=== PATIENT | female | born 1990 | race African-American/Black ===

== ENCOUNTER 2017-07-18 12:05 | Emergency (ER) | payer OTHER ==
[~2017-07-18] VITALS: Ht 160 cm; Wt 48.1 kg
[2017-07-18 12:09] VITALS: TEMP 36.7; Ht 160 cm; Wt 48.1 kg
--- NOTE | 2017-07-18 13:23 | EMERGENCY ROOM VISIT NOTE ---
ED Visit Note First contact with patient: 12:46 Chief complaint: Needle stick at work 2 hours ago HPI: Patient is a 27-year-old female who presents emergency department accompanied by her sister for evaluation of a needlestick injury that occurred at work about 2 hours ago. 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 She was reaching into a trash can, when she was stuck in the right thumb by a small hypodermic needle, which she does bring in with her. She states that she squeezed her thumb to make it bleed, they cleansed it with soap and water and applied antibiotic ointment and a Band-Aid. She immediately told her advertising dispatch clerks supervisor. Patient reports that she has never had any type of needlestick injury nor any type of testing for blood work pathogens previously. She does believe that she had the hepatitis B vaccination previously. Her tetanus is current. She denies any other complaints. Review of Systems: Review of systems as per HPI. All other systems reviewed were negative. At least 6 systems reviewed. Past Medical History: Patient is otherwise healthy without any chronic medical problems or surgeries. Social History: Lives locally, denies any tobacco or alcohol use. Immigrated from [place] about 3 years ago. Physical Examination: Vital signs reviewed as per nursing notes. GENERAL: Patient is a pleasant, well-appearing 27-year-old female who is awake and alert and in no acute distress. SKIN: There is a small puncture wound on the tip of the right thumb. Otherwise , the skin is intact. There is no active bleeding. There is no wound care necessary. ED Course Patient was seen and examined as above. She has no old records available for review. Treatment for potential blood borne occupational exposure was outlined with the patient. Information regarding risk of transmission of HIV and hepatitis from a "found needle" from [employer] was related to the patient, as well as their recommendations that no PEP be initiated in this circumstance. She expressed understanding, and was in agreement. Informed consent for HIV and post exposure testing was obtained, and consents and all other paperwork were completed. The patient had no questions, and was comfortable with the treatment plan, and was instructed to follow up with her Worker's Compensation provider for review of her laboratory results. Medication reconciliation: I attest that I have personally reviewed the patient' s current medication list. Blood pressure screening : Patient was found to have normal blood pressure on screening and does not require follow-up. Current/Historical Medications No Active Prescriptions or Reported Meds Allergies Coded Allergies: Dairy (Unverified Allergy, Unknown, ., 07/18/17) Vital Signs Date Time Temp Pulse Resp B/P (MAP) Pulse Ox O2 Delivery O2 Flow Rate FiO2 07/18/17 13:37 77 16 125/84 100 07/18/17 12:09 36.7 78 16 129/87 100 Room Air Laboratory Results Test 07/18/17 13:31 Hepatitis B Surface Antigen NEG (NEG) Hepatitis B Surface Antibody NEG Hepatitis C Antibody NEG (NEG) HIV (1&2) Ab and P24 Ag, 4th Gener NEG (NEG) Departure Information Impression Primary Impression: Sharps injury Additional Impressions: Work related injury Exposure to blood or body fluid Prescriptions No Active Prescriptions or Reported Meds Referrals Miranda Mcmillan D.O. (PCP) Patient Instructions [facility] Additional Instructions Follow-up with your Worker's Compensation/occupational health provider for review of your laboratory studies and for further testing as indicated. Return to the ED if needed. Problem Qualifiers
[2017-07-18 13:37] VITALS: BP 125/84; PULSE 77; O2SAT 100
[2017-07-18 15:09] LABS: HEP C IGG 13 YRS+OLDER_RFLX NEG (NEG)
== END 2017-07-18 13:37 | disposition home or self-care (01) ==
LOC: C.EDB 12:06 → C.EDD 13:37
DX: S61.031A Puncture wound without foreign body of right thumb without damage to nail, initial encounter (principal); W46.1XXA Contact with contaminated hypodermic needle, initial encounter; Y99.0 Civilian activity done for income or pay; Y92.59 Other trade areas as the place of occurrence of the external cause; Z91.011 Allergy to milk products

== ENCOUNTER 2019-03-30 12:12 | Inpatient (IN) ==
--- OUTSIDE RECORDS SUMMARY | 2019-03-30 12:24 | External Medical Summary | Continuity of Care Document ---
:1990 Author Name Dawna Escobar, Provider Address Unavailable Unavailable , Care Team Providers Name Role Phone Miranda Cline Unavailable [email or web address], [email or web address] Unavailable Unavailable Problems Active medical history not documented Allergies and Adverse Reactions Allergy history not documented Medications Medications not documented Procedures Procedures not documented Immunizations Immunizations not documented Plan of Treatment Planned Observations Planned Goals not documented Results No Known Results Results not documented Encounters Appointment; Miranda Perkins CRNP 22-Jul-2017 14:00 Encounter Diagnosis: Problem not documented
[2019-03-30] MEDS ORDERED: OXYTOCIN 30 UNITS/500 ML BAG IV PRN (13:26)
[2019-03-30] MEDS ORDERED: DINOPROSTONE 10 MG INSERT PV ONE (13:45)
[2019-03-30] MEDS ORDERED: PENICILLIN G POTASSIUM 6 MU in DEXTROSE 5% 250 ML IV STA (13:45)
[2019-03-30 14:07] LABS: Hematocrit (blood only) 35.5 % (37-47); Hemoglobin 12.4 g/dL (12.0-16.0); Mean Corpuscular Hemoglobin 32.5 pg (25-34); Mean Corpuscular Volume 92.9 fL (80-100); Mean Platelet Volume 10.7 fL (7.4-10.4); Platelet Count 236 K/uL (130-400); RDW Coefficient of Variation 11.9 % (11.5-14.5); RDW Standard Deviation 40.4 fL (36.4-46.3); Red Blood Count 3.82 M/uL (4.2-5.4); White Blood Count 4.35 K/uL (4.8-10.8)
[2019-03-30 14:11] LABS: Mean Corpuscular Hgb Conc 34.9 g/dL (32-36)
--- NOTE | 2019-03-30 14:12 | Obstetrical Progress Note ---
Date of Service March 30, 2019 Subjective Admit note 28 F P0000 at 39 weeks admitted for IOL for IUGR. cervix is is closed/50/- 3/vertex/posterior/intact/firm. GBS is positive. FHT Cat 1. Cervidil 10 mg vaginally placed for cervical ripening. Antibiotics to be started when in labor. EFW 6 lbs. Results & Data Vital Signs (Past 12 Hours) Vital Signs Pulse BP 03/30/19 12:27 95 H 120/78
[2019-03-30] MEDS ORDERED: BUTORPHANOL TARTRATE 1 MG/ML VIAL IV PRN (19:54)
[2019-03-30] MEDS ORDERED: ONDANSETRON INJ 2 MG/ML 2 ML VIAL IV PRN ×2 (19:54→22:56)
[2019-03-30] MEDS: LACTATED RINGER'S 1,000 ML IV PRN (19:55)
[2019-03-30] MEDS ORDERED: BUTORPHANOL TARTRATE 1 MG/ML VIAL ONE (19:58)
[2019-03-30] MEDS ORDERED: ONDANSETRON INJ 2 MG/ML 2 ML VIAL ONE (19:59)
--- NOTE | 2019-03-30 21:58 | Obstetrical Progress Note ---
Date of Service March 30, 2019 Physical Exam Genitourinary: OB Exam Abdomen: + heart tones Manual OB Exam: + cervical dilation 3 cm and 4 cm, + cervical effacement 70%, + station -2 and + amniotic fluid clear OB Exam Monitor Tracing: + external FHT monitor used, + external uterine monitor used, + category I and + normal FHT variability AROM with Amni-hook clear fluid for epidural Results & Data Vital Signs (Past 12 Hours) Vital Signs Temp Pulse Resp BP Pulse Ox 03/30/19 21:53 82 99 03/30/19 21:48 78 100 03/30/19 21:43 72 100 03/30/19 21:38 80 98 03/30/19 21:33 76 100 03/30/19 21:28 71 100 03/30/19 21:24 84 91 03/30/19 21:23 78 100 03/30/19 21:18 72 100 03/30/19 21:13 81 100 03/30/19 21:08 76 100 03/30/19 21:05 80 89 L 03/30/19 21:03 77 100 03/30/19 20:58 80 100 03/30/19 20:53 79 100 03/30/19 20:48 88 80 L 03/30/19 20:47 95 H 90 03/30/19 20:42 84 100 03/30/19 20:37 85 100 03/30/19 20:32 97 H 100 03/30/19 20:27 91 H 100 03/30/19 20:24 100 H 92 03/30/19 20:22 97 H 100 03/30/19 20:17 91 H 100 03/30/19 20:12 92 H 100 03/30/19 20:07 95 H 100 03/30/19 20:02 89 100 03/30/19 19:57 94 H 93 03/30/19 19:55 93 H 91 03/30/19 19:52 96 H 100 03/30/19 19:49 103 H 86 L 03/30/19 19:47 109 H 100 03/30/19 19:42 97 H 92 03/30/19 19:37 98 H 100 03/30/19 19:15 36.8 C 16 03/30/19 19:08 86 111/66 03/30/19 16:03 36.6 C 16 03/30/19 16:02 86 116/79 03/30/19 12:27 95 H 120/78
[2019-03-30] MEDS ORDERED: fentaNYL citrate 100 MCG/2 ML VIAL ONE (21:59)
[2019-03-30] MEDS ORDERED: ePHEDrine sulfate 50 MG/ML AMP ONE (21:59)
[2019-03-30] MEDS ORDERED: BUPIVACAINE 0.25% 30 ML VIAL ONE (21:59)
[2019-03-30] MEDS ORDERED: fentaNYL 2MCG/ML ROPIV 1.25MG/ML 100 ML BAG EPI ONE (22:00)
--- NOTE | 2019-03-30 22:31 | Anesthesiology Consultation ---
Date of Service March 30, 2019 Assessment & Plan Chart Review Chart Review: Acceptable Risk for Surgery, Patient NOT seen in Pre Admission Testing and Acceptable Risk for Labor Epidural Consults Requested none ASA ASA2 Proposed Anesthesia Anesthesia Type: Labor Epidural Risk / Benefits Reviewed With: PT / POA / Parent / Guardian, Accepts Plan and I nformed Consent Obtained History Height/Weight Height: 5 ft 1 in Weight: 59.421 kg Allergies Allergy/AdvReac Type Severity Reaction Status Date / Time milk Allergy Unknown . Verified 03/30/19 12:29 Medications Home Medications Medication Instructions Recorded Confirmed Last Taken PNV cmb#95-ferrous fumarate-FA 1 tab PO DAILY 03/30/19 03/30/19 03/29/19 [] cholecalciferol (vitamin D3) 2,000 unit PO DAILY 03/30/19 03/30/19 Unknown [Vitamin D3] Active Medications Generic Name Dose Route Start Last Admin Trade Name Freq PRN Reason Stop Dose Admin Lactated Ringer's 1,000 mls @ 125 mls/hr 03/30/19 13:26 03/30/19 21:27 Lr IV 04/01/19 13:25 125 mls/hr .Q8H PRN Infusion L&D Protocol Protocol NPO Date Last Intake of Fluids: 03/30/19 Time Last Intake of Fluids: 21:00 Date Last Intake of Solids: 03/30/19 Time Last Intake of Solids: 15:00 Exercise / Class Metabolic Activity II 4-5 Yardwork/Stairs/Walk up hill Past Surgical History Surgical History History of dental surgery Past Anesthesia History No Hx of Anesthesia Complications and No Family Hx of Anesthesia Complications History of PONV No Hx of PONV and No Hx of Motion Sickness Social History Smoking Status: Never smoker Hx Alcohol Use: No Hx Substance Use: No Physical Exam Vital Signs Last Vital Signs Temp 36.8 C 03/30/19 19:15 Pulse 75 03/30/19 22:28 Resp 16 03/30/19 19:15 BP 140/64 03/30/19 22:28 Pulse Ox 90 03/30/19 22:25 Constitutional not obese ENMT Mouth: + small oral opening; no dentition abnormality Thyromental Distance: < 3.5 Finger Breadths Mallampati Class: II Neck normal visual inspection and trachea midline; neck extension not limited Respiratory normal respiratory effort Auscultation: lungs clear to auscultation bilaterally Cardiovascular Rate/Rhythm: regular rate and regular rhythm Heart Sounds: no murmur Musculoskeletal Spine: lumbar spine normal to inspection; normal cervical ROM Neurologic moves all extremities Motor/Sensory: no sensory deficit Psychiatric Orientation: alert and oriented x 3 Testing Laboratory Results 03/30/19 13:52
[2019-03-30] MEDS ORDERED: NALOXONE HCL 1 MG in SODIUM CHLORIDE 0.9% 1000ML 1,000 ML IV PRN (22:56)
[2019-03-30] MEDS ORDERED: fentaNYL 2MCG/ML ROPIV 1.25MG/ML 100 ML BAG EPI PRN (22:56)
[2019-03-30] MEDS ORDERED: NALBUPHINE HCL INJ 10 MG/ML AMP IV PRN (22:56)
[2019-03-30] MEDS ORDERED: PROMETHAZINE HCL 25 MG in SODIUM CHLORIDE 0.9% 50 ML IV PRN (22:56)
[2019-03-30] MEDS ORDERED: NALOXONE HCL 0.4 MG/1 ML VIAL/CARP IV PRN (22:56)
[2019-03-30] MEDS ORDERED: DiphenhydrAMINE HCL 50 MG/ML VIAL IV PRN (22:56)
[2019-03-30] MEDS ORDERED: ePHEDrine sulfate 50 MG/ML AMP IV PRN (22:56)
[2019-03-31] MEDS: PENICILLIN G POTASSIUM 3 MU in DEXTROSE 5% 100 ML IV PRN ×3 (00:53→08:17)
[2019-03-31] MEDS: LACTATED RINGER'S 1,000 ML IV PRN (02:05)
[2019-03-31] MEDS ORDERED: SUPERCREAM 0.870% 15 GM JAR EXT PRN (11:57)
[2019-03-31] MEDS ORDERED: HYDROCORTISONE ACETATE 25 MG SUPP PR PRN (11:57)
[2019-03-31] MEDS ORDERED: BENZOCAINE 20% AER SPR 82.5 GM CAN EXT PRN (11:57)
[2019-03-31] MEDS ORDERED: bisacodyL 10 MG SUPP PR PRN (11:57)
[2019-03-31] MEDS ORDERED: ACETAMINOPHEN W/CODEINE #3 1 TAB PO PRN (11:57)
[2019-03-31] MEDS ORDERED: OXYCODONE/ACETAMINOPHEN 5mg/325mg TAB PO PRN (11:57)
[2019-03-31] MEDS ORDERED: ACETAMINOPHEN 325 MG TAB PO PRN (11:57)
[2019-03-31] MEDS ORDERED: OXYTOCIN 30 UNITS/500 ML BAG IV PRN (11:57)
[2019-03-31] MEDS ORDERED: DIPHTHERIA/TETANUS/PERTUSSIS 0.5 ML SYR/VIAL IM ONE (11:57)
--- NOTE | 2019-03-31 12:59 | Operative Report ---
DATE OF OPERATION: 03/31/2019 1, para 1. Blood type is O positive, vaginal group B strep positive. Due date 04/06/2019, was brought in for induction of labor at [facility], had an epidural for pain control, was started on IV Pitocin augmentation and she went to full dilatation, delivered a live via direct occiput anterior position over an intact perineum. Infant was suctioned through the mouth and the nose. Shoulders were delivered without difficulty. Cord was clamped, cut by the patient's mother. Then cord blood was taken. With IV Pitocin running, the placenta was removed intact. Inspection of the perineum revealed a first degree laceration in the midline along with a laceration of the labia minora superficial on the left side. The midline was approximated with 2-0 Vicryl, which approximated the vaginal mucosa out to beyond the hymenal ring. A separate suture was used to approximate the bulbocavernosus muscle, deep sutures used to approximate the perineal body and a running subcuticular suture was used to approximate the perineal skin edges. Then, the laceration on the left labia minora was approximated with a running 3-0 chromic. Following this, vaginal examination revealed no hematoma formation or sponges in the vagina. Estimated blood loss was 200 mL. Apgars were deferred to the nurses. I attest to the content of the Intraoperative Record and any orders documented therein. Any exception s are noted below.
--- NOTE | 2019-03-31 13:42 | Anesthesia Procedure Note ---
Date of Service March 31, 2019 Anesthesia Post Epidural Note Vital Signs Vital Signs: Temp Pulse Resp BP Pulse Ox 36.9 C 88 20 122/73 99 03/31/19 08:51 03/31/19 13:35 03/31/19 12:45 03/31/19 13:35 03/31/19 11:29 Pain Intensity Bilateral Abdomen: Pain Intensity: 0 Notes Mental Status: alert / awake / arousable and participated in evaluation Nausea / Vomiting: adequately controlled Pain: adequately controlled Airway Patency, RR, SpO2: stable & adequate BP & HR: stable & adequate Hydration State: stable & adequate Neuraxial Anesthesia: was administered and sensory block is resolving Anesthetic Complications: no major complications apparent and Pt Satisfied with anesthetic care Epidural: Removed without complications and With tip intact
[2019-03-31] MEDS: IBUPROFEN 600 MG TAB PO PRN ×2 (13:43→23:26)
[2019-03-31] MEDS: DOCUSATE SODIUM 100 MG CAP PO SCH (20:38)
[2019-04-01 06:14] LABS: Hematocrit (blood only) 30.5 % (37-47); Hemoglobin 10.6 g/dL (12.0-16.0); Mean Corpuscular Hemoglobin 32.7 pg (25-34); Mean Corpuscular Hgb Conc 34.8 g/dL (32-36); Mean Corpuscular Volume 94.1 fL (80-100); Mean Platelet Volume 10.7 fL (7.4-10.4); Platelet Count 198 K/uL (130-400); RDW Standard Deviation 40.7 fL (36.4-46.3); Red Blood Count 3.24 M/uL (4.2-5.4); White Blood Count 11.66 K/uL (4.8-10.8)
--- NOTE | 2019-04-01 08:31 | Obstetrical Progress Note ---
Date of Service April 01, 2019 Subjective doing well liz diet ambulating and passing gas Physical Exam Constitutional: WD/WN, vitals as above comfortable abdomen is soft and non-tender neg edema neg [place]'s tent d/c tomorrow Results & Data Vital Signs (Past 12 Hours) Vital Signs Temp Pulse Resp BP 04/01/19 04:50 36.7 C 75 18 99/64 L 04/01/19 00:30 37 C 65 18 105/68 Laboratory Results Laboratory Results - last 72 hr 03/30/19 04/01/19 13:52 05:41 WBC 4.35 L 11.66 H RBC 3.82 L 3.24 L Hgb 12.4 10.6 L Hct 35.5 L 30.5 L MCV 92.9 94.1 MCH 32.5 32.7 MCHC 34.9 34.8 RDW Std Deviation 40.4 40.7 RDW Coeff of Etelvina 11.9 12.0 Plt Count 236 198 MPV 10.7 H 10.7 H
[2019-04-01] MEDS: DOCUSATE SODIUM 100 MG CAP PO SCH ×2 (09:09→21:00)
[2019-04-01] MEDS: PRENATAL VITAMIN 1 TAB PO SCH (09:09)
[2019-04-01] MEDS: IBUPROFEN 600 MG TAB PO PRN ×3 (09:09→23:52)
[2019-04-01] MEDS ORDERED: bisacodyL 5 MG TABEC PO SCH (20:00)
[2019-04-02 07:13] LABS: Hematocrit (blood only) 31.1 % (37-47); Hemoglobin 10.9 g/dL (12.0-16.0)
--- NOTE | 2019-04-02 08:12 | Obstetrical Progress Note ---
Date of Service April 02, 2019 Subjective Patient is seen and examined. She feels well, no complaints. Ambulating without dizziness Voiding without difficulty Tolerating regular diet with out N&V Bleeding is minimal No fever/ chills/ CP/ SOB/ N&V/ Leg pain Breast feeding without problems Vital Signs Temp Pulse Resp BP Pulse Ox 04/02/19 08:00 36.6 C 66 18 107/70 98 04/01/19 23:45 36.4 C L 72 16 95/61 L 04/01/19 15:50 36.4 C L 78 16 106/69 04/01/19 11:35 36.5 C 69 18 107/70 100 Lab Results 03/30/19 04/01/19 04/02/19 Range/Units 13:52 05:41 06:58 WBC 4.35 L 11.66 H (4.8-10.8) K/uL RBC 3.82 L 3.24 L (4.2-5.4) M/uL Hgb 12.4 10.6 L 10.9 L (12.0-16.0) g/dL Hct 35.5 L 30.5 L 31.1 L (37-47) % MCV 92.9 94.1 (80-100) fL MCH 32.5 32.7 (25-34) pg MCHC 34.9 34.8 (32-36) g/dL RDW Std Deviation 40.4 40.7 (36.4-46.3) fL RDW Coeff of Teelvina 11.9 12.0 (11.5-14.5) % Plt Count 236 198 (130-400) K/uL MPV 10.7 H 10.7 H (7.4-10.4) fL PE: General: Alert, orientedx3, NAD Abd: soft, NT, fundus firm, below Umbilicus Perineum intact, Lochia rubra minimal Ext; NT, no edema AP: 28 yo s/p , ppd# 2 VSS Afebrile doing well Continue routine care All questions were answered Discussed when to call D/C home , f/u in office Results & Data Vital Signs (Past 12 Hours) Vital Signs Temp Pulse Resp BP Pulse Ox 04/02/19 08:00 36.6 C 66 18 107/70 98 04/01/19 23:45 36.4 C L 72 16 95/61 L
[2019-04-02] MEDS: DOCUSATE SODIUM 100 MG CAP PO SCH ×2 (09:26→20:22)
[2019-04-02] MEDS: IBUPROFEN 600 MG TAB PO PRN ×3 (09:26→20:22)
[2019-04-02] MEDS: PRENATAL VITAMIN 1 TAB PO SCH (09:26)
== END 2019-04-02 21:20 | disposition home or self-care (01) | DRG 807 ==
LOC: 4S1 12:20 → 4S2 03-31 15:11

== ENCOUNTER 2021-10-11 19:32 | Inpatient (IN) ==
[2021-10-11] MEDS ORDERED: LACTATED RINGER'S 1,000 ML IV PRN (19:47)
[2021-10-11] MEDS ORDERED: OXYTOCIN 30 UNITS/500 ML BAG IV PRN ×2 (19:47→20:25)
[2021-10-11] MEDS ORDERED: PENICILLIN G POTASSIUM 6 MU in DEXTROSE 5% 250 ML IV STA (19:47)
[2021-10-11] MEDS ORDERED: METHYLERGONOVINE MALEATE 0.2 MG/ML AMP IM ONE ×2 (20:25→20:45)
[2021-10-11] MEDS ORDERED: bisacodyL 10 MG SUPP PR PRN (20:25)
[2021-10-11] MEDS ORDERED: DIPHTHERIA/TETANUS/PERTUSSIS 0.5 ML SYR/VIAL IM ONE (20:25)
[2021-10-11] MEDS ORDERED: ACETAMINOPHEN 325 MG TAB PO PRN (20:25)
[2021-10-11] MEDS ORDERED: HYDROCORTISONE ACETATE 25 MG SUPP PR PRN (20:25)
[2021-10-11] MEDS ORDERED: BENZOCAINE 20% AER SPR 82.5 GM CAN EXT PRN (20:25)
[2021-10-11] MEDS ORDERED: BUTORPHANOL TARTRATE 1 MG/ML VIAL IV STA (20:28)
--- NOTE | 2021-10-11 20:28 | History & Physical Report ---
Date of Service October 11, 2021 Assessment & Plan (1) labor in third trimester with delivery: Plan Delivery imminent Admission and Anticipated Discharge Date Admission Date: October 11, 2021 History of Present Illness Chief Complaint: active labor Primary Care Provider: Miranda Mcmillan, 31 F P1001 at 36.5 weeks admitted kelli ctive labor ready to push. GBS is unknown Allergies Allergy/AdvReac Type Severity Reaction Status Date / Time milk Allergy Unknown . Verified 03/30/19 12:29 Home Medications Medication Instructions Recorded Confirmed Type cholecalciferol (vitamin D3) 50 2,000 unit PO DAILY 03/30/19 03/30/19 History mcg (2,000 unit) tablet (Vitamin D3) vit no.95-ferrous 1 tab PO DAILY 03/30/19 03/30/19 History fumarate 28 mg-folic acid 800 mcg tablet () Patient History Surgical History History of dental surgery Social History Smoking Status: Never smoker Second Hand Exposure: No; Do You Dip or Chew Tobacco: No; Tobacco Cessation Education Requested by Patient: No Hx Alcohol Use: No Hx Substance Use: No Preferred Language: [place]er Communication 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 Beliefs That Will Affect Care: None marital status: Single Current Living Situation: Family Current Living Situation Comment: sister and patient's father Other Information That Helps Us Care for You: Yes Feels Safe at Home: Yes Safety Concerns: Feels Safe At This Time Assistive Devices: None OB History x1 CAN DRYER History neg Review of Systems All systems reviewed & are unremarkable except as noted in HPI & below Physical Exam Constitutional: WD/WN, vitals as above Eyes: PERRL, conjunctivae normal, anicteric sclerae Respiratory: normal respiratory effort, lungs clear to auscultation Cardiovascular: RRR, no murmur, no edema Musculoskeletal: Extremities: extremities normal to inspection no edema Skin: no rashes, warm and dry Neurologic: patellar DTR's 2+ bilat, sensation intact Psychiatric: A+Ox3, euthymic affect Genitourinary: Manual OB Exam: + cervical dilation 10 cm, + cervical effacement 100%, + station + 2 and + amniotic fluid clear OB Exam Monitor Tracing: + external FHT monitor used, + external uterine monitor used, + category I and + normal FHT variability Results & Data ([facility]) Vital Signs (Past 12 Hours) Vital Signs Temp Pulse Resp BP 10/11/21 19:55 36.7 C 18 10/11/21 20:19 91 H 10/11/21 20:19 120/69 10/11/21 19:42 79 121/68 Monitoring External Monitor Cat 1
[2021-10-11] MEDS ORDERED: BUTORPHANOL TARTRATE 1 MG/ML VIAL ONE (20:32)
[2021-10-11 20:39] LABS: Hematocrit (blood only) 36.1 % (34.1-44.9); Hemoglobin 12.3 g/dl (12.0-16.0); Mean Corpuscular Hemoglobin 32.6 pg (25.0-34.0); Mean Corpuscular Hgb Conc 34.1 g/dL (32.0-36.0); Mean Corpuscular Volume 95.8 fL (80.0-100.0); Mean Platelet Volume 10.5 fL (9.4-12.3); Platelet Count 210 K/uL (130-400); RDW Coefficient of Variation 11.7 % (11.5-14.5); Red Blood Count 3.77 M/uL (3.93-5.22); White Blood Count 7.34 K/ul (4.8-10.8)
[2021-10-11] MEDS: DOCUSATE SODIUM 100 MG CAP PO SCH (21:02)
[2021-10-11] MEDS ORDERED: PENICILLIN G POTASSIUM 3 MU in DEXTROSE 5% 100 ML IV PRN (22:47)
[2021-10-12] MEDS: IBUPROFEN 600 MG TAB PO PRN ×5 (00:20→23:47)
--- NOTE | 2021-10-12 00:38 | Operative Report (OR) ---
DATE OF SURGERY: 10/11/2021. CLINICAL HISTORY: The patient is a 31-year-old female, para 1-0-0-1, at 36 and 1/2 weeks, who presents by ambulance, without calling prior to coming in by ambulance. She presented to labor and delivery with active contractions. She was 8 cm on presentation. Upon my arrival, she was completely dilated and ready to push. She had a spontaneous vaginal delivery of a live female YESSICA with intact perineum , Apgars were 8 and 9 with delayed cord clamping, weight was pending. She was GBS status unknown and there was no time to receive antibiotics. There were no complications after delivery, there were no tears, and no repair was done. The estimated blood loss was 100 mL. There was a slight gush of blood afterwards until the uterus was completely firm. She received Methergine IM in the delivery room. The final sponge and instrument counts were correct and the patient was stable and the baby stable as well. Job ID: [id number] [facility]ITALCathy
[2021-10-12 06:37] LABS: Hematocrit (blood only) 34.6 % (34.1-44.9); Hemoglobin 12.1 g/dl (12.0-16.0); Mean Corpuscular Hemoglobin 32.3 pg (25.0-34.0); Mean Corpuscular Volume 92.3 fL (80.0-100.0); Mean Platelet Volume 10.5 fL (9.4-12.3); Platelet Count 229 K/uL (130-400); RDW Coefficient of Variation 11.4 % (11.5-14.5); RDW Standard Deviation 38.5 fL (36.4-46.3); Red Blood Count 3.75 M/uL (3.93-5.22); White Blood Count 10.03 K/ul (4.8-10.8)
[2021-10-12] MEDS: DOCUSATE SODIUM 100 MG CAP PO SCH ×2 (07:23→19:30)
[2021-10-12] MEDS: FERROUS SULFATE 325 MG TAB PO SCH (07:23)
[2021-10-12] MEDS: PRENATAL VITAMIN 1 TAB PO SCH (07:23)
[2021-10-12] MEDS ORDERED: NON-FORMULARY MEDICATION (Pnv Cmb#95-Ferrous Fumarate-Fa [Prenatal] 28 mg iron- 800 mcg Ta PO SCH (09:00)
[2021-10-12] MEDS: CHOLECALCIFEROL 1,000 UNITS 25 MCG TAB PO SCH (09:17)
--- NOTE | 2021-10-12 10:15 | Obstetrical Progress Note ---
Date of Service October 12, 2021 Assessment & Plan (1) Normal course: PPD #1 Pt doing well Anticipate disch tomorrow Subjective Ambulation: ambulating normally Voiding: no voiding problems Passing Gas:: Yes Diet Tolerance:: regular diet Lochia:: Small Feeding Type:: breast feeding Review of Systems All systems reviewed & are unremarkable except as noted in HPI & below Physical Exam Constitutional WD/WN, vitals as above well developed and well nourished Eyes PERRL, conjunctivae normal, anicteric sclerae Neck trachea midline, no thyromegaly Respiratory normal respiratory effort, lungs clear to auscultation Auscultation: no crackles, no rales and no wheezes Cardiovascular RRR, no murmur, no edema Gastrointestinal (Abdomen) normal bowel sounds, soft, nontender, no hepatosplenomegaly Uterus is below umbilicus Musculoskeletal no cyanosis or clubbing, extremities motor strength 5/5 Skin no rashes, warm and dry Neurologic patellar DTR's 2+ bilat, sensation intact Psychiatric A+Ox3, euthymic affect Genitourinary normal external appearance Results & Data ([facility]) Vital Signs (Past 12 Hours) Vital Signs Temp Pulse Pulse Resp BP BP 10/12/21 03:19 36.8 C 61 15 122/76 10/12/21 00:00 36.9 C 80 16 100/65 10/11/21 22:20 96 H 18 116/61 10/11/21 22:20 96 H 10/11/21 22:20 116/61
[2021-10-12] MEDS ORDERED: bisacodyL 5 MG TABEC PO SCH (20:00)
[2021-10-13] MEDS: IBUPROFEN 600 MG TAB PO PRN (04:33)
[2021-10-13 06:52] LABS: Hematocrit (blood only) 35.5 % (34.1-44.9); Hemoglobin 12.3 g/dl (12.0-16.0)
[2021-10-13] MEDS: FERROUS SULFATE 325 MG TAB PO SCH (08:03)
[2021-10-13] MEDS: PRENATAL VITAMIN 1 TAB PO SCH (08:03)
[2021-10-13] MEDS: DOCUSATE SODIUM 100 MG CAP PO SCH (08:03)
[2021-10-13] MEDS: CHOLECALCIFEROL 1,000 UNITS 25 MCG TAB PO SCH (08:03)
--- NOTE | 2021-10-13 09:28 | Obstetrical Progress Note ---
Date of Service October 13, 2021 Subjective Ambulation: ambulating normally Voiding: no voiding problems Passing Gas:: Yes Diet Tolerance:: regular diet Lochia:: Small Feeding Type:: breast feeding Current Pain Level(1-10): 0 doing well Physical Exam Constitutional WD/WN, vitals as above Gastrointestinal (Abdomen) normal bowel sounds, soft, nontender, no hepatosplenomegaly Inspection/Auscultation: abdomen normal to inspection Musculoskeletal Extremities: extremities normal to inspection no edema. neg [place]'s Skin no rashes, warm and dry Neurologic patellar DTR's 2+ bilat, sensation intact Results & Data ([facility]) Vital Signs (Past 12 Hours) Vital Signs Temp Pulse Resp BP Pulse Ox O2 Del Method 10/13/21 07:55 36.5 C 75 20 110/74 Room Air 10/12/21 23:40 36.8 C 64 16 99/67 L 99 Room Air Laboratory Results 10/11/21 10/11/21 10/12/21 19:45 20:27 06:10 WBC 7.34 10.03 RBC 3.77 L 3.75 L Hgb 12.3 12.1 Hct 36.1 34.6 MCV 95.8 92.3 MCH 32.6 32.3 MCHC 34.1 35.0 RDW Std Deviation 41.0 38.5 RDW Coeff of Etelvina 11.7 11.4 L Plt Count 210 229 MPV 10.5 10.5 SARS-CoV-2, RNA, NAAT NEGATIVE Blood Type Recheck 10/12/21 10/13/21 20:27 06:08 WBC RBC Hgb 12.3 Hct 35.5 MCV MCH MCHC RDW Std Deviation RDW Coeff of Etelvina Plt Count MPV SARS-CoV-2, RNA, NAAT Blood Type Recheck A Positive
== END 2021-10-13 13:35 | disposition home or self-care (01) | DRG 807 ==
LOC: OPB 19:32 → 4S1 19:33 → 4E2 23:01
DX: Z37.0 Single live birth; O60.14X0 Preterm labor third trimester with preterm delivery third trimester, not applicable or unspecified; Z91.011 Allergy to milk products; Z3A.36 36 weeks gestation of pregnancy